=== PATIENT | male | born 1975 | race Caucasian/White ===

== ENCOUNTER → 2021-05-09 | Day surgery (SDC) | payer BC | END | disposition home or self-care (01) | LOC: OR 05:52 | PROVIDERS: Surgery | PROC: 0DJD8ZZ Inspection of Lower Intestinal Tract, Via Natural or Artificial Opening Endoscopic (ICD-10-PCS; principal; 2021-05-09 07:30) | DX: Z12.11 Encounter for screening for malignant neoplasm of colon (principal); K57.30 Diverticulosis of large intestine without perforation or abscess without bleeding; K21.9 Gastro-esophageal reflux disease without esophagitis; I10 Essential (primary) hypertension; E11.9 Type 2 diabetes mellitus without complications; Z20.822 Contact with and (suspected) exposure to COVID-19; Z95.5 Presence of coronary angioplasty implant and graft | CPT/HCPCS: 82962; J2704; J7030 ==

== ENCOUNTER 2021-05-30 12:57 | Emergency (ER) | payer BC ==
[~2021-05-30] VITALS: Ht 188 cm; Wt 138.8 kg
== END 2021-05-30 15:50 | disposition home or self-care (01) ==
LOC: ER1 12:57
DX: U07.1 COVID-19 (principal); Z23 Encounter for immunization
CPT/HCPCS: 99283; M0243; U0002

== ENCOUNTER → 2021-06-05 | Outpatient (CLI) | payer BC | LOC: KOH-I 13:37 | DX: U07.1 COVID-19 (principal) | CPT/HCPCS: 71046 ==